=== PATIENT | female | born 2000 | race Two or more races ===

== ENCOUNTER 2021-05-26 20:49 | Emergency (ER) | payer MEDICAID ==
[~2021-05-26] VITALS: Ht 170.2 cm; Wt 131.8 kg
[2021-05-26 23:24] VITALS: BP 143/115
[2021-05-26] MEDS ORDERED: IBUP-1986 PO (23:51)
[2021-05-26] MEDS ORDERED: AMOX-117 PO (23:51)
[2021-05-26] MEDS ORDERED: HYDROcodone/acetaminophen 10/325mg tab PO ONE (23:55)
[2021-05-26] MEDS ORDERED: amox tr/potassium clavulanate 875/125mg TAB PO ONE (23:55)
== END 2021-05-27 00:04 | disposition home or self-care (01) ==
LOC: EDBD 20:51 → ER 20:51
DX: L72.3 Sebaceous cyst (principal); Z79.2 Long term (current) use of antibiotics; Z79.899 Other long term (current) drug therapy
CPT/HCPCS: 99283

== ENCOUNTER 2023-07-12 12:11 | Emergency (ER) | payer MEDICAID ==
[~2023-07-12] VITALS: Ht 167.6 cm; Wt 137.4 kg
[~2023-07-12 12:11] MED LIST: IBUP-1986 PO
[2023-07-12 12:45] VITALS: BP 143/94; PULSE 97; RESP 14; TEMP 98.3; O2SAT 96
[2023-07-12] MEDS ORDERED: AMOX-117 PO (13:29)
== END 2023-07-12 13:35 | disposition home or self-care (01) ==
LOC: ER 12:11
DX: J01.90 Acute sinusitis, unspecified (principal); Z79.1 Long term (current) use of non-steroidal anti-inflammatories (NSAID); Z79.899 Other long term (current) drug therapy
CPT/HCPCS: 99283